=== PATIENT | male | born 1990 | race Caucasian/White ===

== ENCOUNTER 2021-06-23 22:31 | Emergency (ER) | payer SELFPAY ==
[~2021-06-23] VITALS: Ht 175.3 cm; Wt 81.6 kg
[2021-06-23] MEDS ORDERED: PIPERACILLIN/TAZOBACTAM 4.5 GM in SODIUM CHLORIDE 0.9% 100 ML IV STA (22:42)
[2021-06-23] MEDS ORDERED: SODIUM CHLORIDE 0.9% 100 ML ONE (22:58)
[2021-06-23] MEDS ORDERED: PIPERACILLIN/TAZOBACTAM SOD 2.25 GM VIAL ONE (22:58)
[2021-06-23] MEDS ORDERED: CEPHALEXIN500 MG PO (23:23)
[2021-06-23] MEDS ORDERED: BACTRIM DS TAB1 EACH PO (23:23)
[2021-06-23 23:51] VITALS: BP 142/81
== END 2021-06-23 23:51 | disposition home or self-care (01) ==
LOC: FSED 22:45
DX: L03.113 Cellulitis of right upper limb (principal)
CPT/HCPCS: 99283; J2543 ×2; J7050